=== PATIENT | female | born 1940 | race Caucasian/White ===

== ENCOUNTER 2018-12-31 13:04 | Inpatient (IN) ==
--- NOTE | 2018-12-31 13:44 | Emergency Department Note ---
Lower Extremity Injury HPI - General Chief Complaint: Extremity Injury, Lower Stated Complaint: FALL, HIP FX Time Seen by Provider: 12/31/18 13:10 Source: patient, EMS Mode of arrival: EMS Limitations: no limitations - History of Present Illness HPI Narrative: 78-year-old female presents via EMS from [facility]. Has a known right hip fracture. Her blood sugar was low this morning causing her to fall. She was seen in the hospital there and diagnosed with a hip fracture and is sent to our ER for further evaluation. Ortho has been contacted and accepts this patient. denies any other injuries. Did not hit her head. No loss consciousness. She did eat small little pieces of candy, 3 of them at 7:30 AM this morning. Nothing else to eat or drink since. tetanus current - Related Data Home Medications Medication Instructions Recorded Confirmed Enalapril Maleate 20 mg PO BID 12/31/18 12/31/18 Insulin Glargine, Human [Lantus] 19 units SQ QAM 12/31/18 12/31/18 Insulin Lispro [Humalog Kwikpen 12/31/18 U-200] Mometasone Furoate [Asmanex] 220 mcg IH DAILY 12/31/18 12/31/18 Nasonex 2 puff INTRANASAL DAILY 12/31/18 12/31/18 Potassium Chloride [Klor-Con M10] 10 meq PO BID 12/31/18 12/31/18 RX: Omeprazole 20 mg PO DAILY 12/31/18 12/31/18 amLODIPine [Norvasc] 10 mg PO DAILY 12/31/18 12/31/18 Allergies Allergy/AdvReac Type Severity Reaction Status Date / Time No Known Drug Allergies Allergy Unverified 12/31/18 13:11 Review of Systems All systems ED: reviewed and negative except as stated. Past Medical History - Past Medical History Medical history: Reports: asthma, DM, hypertension Surgical history ED: Reports: other (bladder sling) - Social History smoking status: Never smoker Alcohol use: Reports: None Drug use: Reports: none Physical Exam Limitations: no limitations General appearance: alert Head: atraumatic, normocephalic, normal inspection Eye: Present: normal appearance. Absent: conjunctival injection ENT: Present: mucous membranes moist Chest: Present: symmetric chest wall rise Respiratory: Present: normal lung sounds bilaterally. Absent: respiratory distress, rales/crackles, wheezes, accessory muscle use Cardiovascular: Present: regular rate, normal heart sounds Extremities: Present: normal capillary refill. Absent: normal inspection (right hip pain with slight shortening and rotation), full ROM (limited rom right hip), pedal edema Neurological: Present: alert, oriented X3 Psychiatric: Present: normal affect, normal mood Skin: Present: warm, dry, intact, normal color, other (1 cm skin tear rigth eblow. ROM and CMS intact ue bilat. skin tear cleansed and dressed by nursing staff.) Course Vital Signs Temperature 98.3 F 12/31/18 13:06 Pulse Rate 116 H 12/31/18 13:06 Respiratory Rate 18 12/31/18 13:06 Blood Pressure 161/72 12/31/18 13:06 Pulse Oximetry (%) 97 12/31/18 13:06 Temperature 98.3 F 12/31/18 13:06 Pulse Rate 116 H 12/31/18 13:06 Respiratory Rate 18 12/31/18 13:06 Blood Pressure 146/68 12/31/18 14:48 Pulse Oximetry (%) 100 12/31/18 14:48 Disposition Pt seen by SILO PAINTER/PA only: Yes Clinical Impression: Fall, Hip fracture, Skin tear Disposition: Xfer As Outpt/Obs ([facility]) Condition: Fair
[2018-12-31] MEDS ORDERED: ceFAZolin 2 GM in DEXTROSE 5% IN WATER 50 ML IV SCH (15:00)
[2018-12-31] MEDS ORDERED: IPRATROPIUM/ALBUTEROL 3 ML AMPUL.NEB NEB ONE (15:16)
--- NOTE | 2018-12-31 15:25 | XRay Report ---
CLINICAL INFORMATION: pre-op COMPARISON: 02/05/2007 FINDINGS: Small hiatal hernia noted. Cardiomediastinal silhouette and pulmonary vessels are otherwise normal. The lungs are clear. No effusions. IMPRESSION: Small hiatal hernia. No acute disease Interpreted and Authenticated by: Rivera Werner 12/31/18
--- NOTE | 2018-12-31 16:42 | Internal Med History&Physical ---
Medical - H&P: [facility] Patient information: Note initiated : 12/31/18 at 4:42 pm Service Date, if different from initiated Date: [] Patient: Alia Alfred 78 y/o F admitted on 12/31/18 for FALL, HIP FX. Chief Complaint: [] Chief complaint: Fall with right hip History of present illness: Ms. Alfred is a 78 year old F of poorly controlled diabetes/hypertension who presents to [facility] ER after she sustained a fall this morning landing on her right side and injuring her right hip. She was on the floor for half an hour until her neighbor checked on her. She was evaluated in the ER initial work-up was consistent with right hip fracture. Dr. Norman orthopedics was consulted and patient was transferred to [facility] for operative intervention. Patient carries a history of poorly controlled diabetes with erratic blood sugars. She had a few episodes of hypoglycemia recently and this morning was dizzy after an episode of hypoglycemia. Patient subsequently fell however did n ot lose consciousness. She denies head injury, thunderclap headache, unilateral weakness or incontinence. She denies seizure episodes. Significant pain is evaluated in the ER. She endorses to recurrent falls and episodes of dizziness. She however denies chest pain, palpitations, tearing neck pain, fever, cough, chills. She denies changes in medications. Endorses to left butt ulcer which has improved significantly over the last couple of months and has been taking care of her by her primary care physician. Review of systems 10 point review of system was performed and is negative except for one discussed above Medical - H&P: PMH Medical history: Hypertension DM type II Degenerative joint disease Seasonal allergy disorder GERD Pertinent family history: Nonrelevant Social history: Lives alone 2 years ago Functional capacity: independent ambulation Have you smoked in the last 12 months: No Drug use: none Alcohol use: none Medical - H&P: Meds Home Medications Medication Instructions Recorded Confirmed Type Enalapril Maleate 20 mg PO BID 12/31/18 12/31/18 History Hydrochlorothiazide [Oretic] 25 mg PO DAILY 12/31/18 12/31/18 History Insulin Glargine, Human [Lantus] 19 units SQ QAM 12/31/18 12/31/18 History Insulin Lispro [Humalog Kwikpen 12/31/18 History U-200] Mometasone Furoate [Asmanex] 220 mcg IH DAILY 12/31/18 12/31/18 History Nasonex 2 puff INTRANASAL DAILY 12/31/18 12/31/18 History Omeprazole 20 mg PO DAILY 12/31/18 12/31/18 History Potassium Chloride [Klor-Con M10] 10 meq PO BID 12/31/18 12/31/18 History amLODIPine [Norvasc] 10 mg PO DAILY 12/31/18 12/31/18 History Allergies Allergy/AdvReac Type Severity Reaction Status Date / Time No Known Drug Allergies Allergy Verified 12/31/18 20:17 Medical - H&P: Exam - Constitutional Vitals: Temp Pulse Resp BP Pulse Ox 98.3 F 116 H 18 146/68 100 12/31/18 13:06 12/31/18 13:06 12/31/18 13:06 12/31/18 14:48 12/31/18 14:48 General appearance: no acute distress Exam: Alert oriented Head normocephalic Neck no lymphadenopathy Oral cavity dry Ear nose discharge Eye movement symmetrical S1-S2 regular rhythm no murmur Diminished breath sounds bases Soft nontender Lower extremity postoperative dressing right thigh Skin no suspicious lesion Psych alert cooperative Neuro nonfocal Medical - H&P: Reslt - Labs CBC & Chem 7: 01/01/19 04:20 Medical - H&P: A/P (1) Closed right hip fracture Current visit: Yes Status: Acute * Right hip fracture-postop day 0. Managed by orthopedics * DVT prophylaxis managed per orthopedics-on Coumadin * Pain management as per orthopedics Hospitalist consult for management of medical issues * DM type II continue basal prandial insulin/CC diet * History of hypertension resume home medications once systolics over 140 * Left butt ulcer-patient declined wound care consult or wound management. * History of GERD continue PPI * Reactive disease continue Asmanex * Full code
[2018-12-31] MEDS ORDERED: PROPOFOL 200 MG/20 ML VIAL IV ONE (17:25)
[2018-12-31] MEDS ORDERED: MIDAZOLAM 2 MG/2 ML VIAL IV ONE (17:25)
[2018-12-31] MEDS ORDERED: METOPROLOL TARTRATE 5 MG/5 ML VIAL IV ONE (17:25)
[2018-12-31] MEDS ORDERED: DEXAMETHASONE 4 MG/ML VIAL IV ONE (17:25)
[2018-12-31] MEDS ORDERED: ONDANSETRON 4 MG/2 ML VIAL IV ONE (17:25)
[2018-12-31] MEDS ORDERED: PHENYLEPHRINE 10 MG/ML VIAL IV ONE (17:25)
[2018-12-31] MEDS ORDERED: fentaNYL 250 MCG/5 ML VIAL IV ONE (17:25)
[2018-12-31] MEDS ORDERED: METHOCARBAMOL 1,000 MG/10 ML VIAL IV PRN (18:03)
[2018-12-31] MEDS ORDERED: IPRATROPIUM/ALBUTEROL 3 ML AMPUL.NEB NEB PRN (18:03)
[2018-12-31] MEDS ORDERED: ACETAMINOPHEN 1,000 MG/100 ML BOTTLE IV ONE ×2 (18:03→18:46)
[2018-12-31] MEDS ORDERED: PROMETHAZINE 25 MG/ML VIAL IV PRN (18:03)
[2018-12-31] MEDS ORDERED: ePHEDrine 50 MG/ML AMPUL IV PRN (18:03)
[2018-12-31] MEDS ORDERED: MEPERIDINE 25 MG/ML SYRINGE IV PRN (18:03)
[2018-12-31] MEDS ORDERED: fentaNYL 100 MCG/2 ML VIAL IV PRN (18:03)
[2018-12-31] MEDS ORDERED: NALOXONE HCL 0.4 MG/ML VIAL IV PRN (18:03)
[2018-12-31] MEDS ORDERED: diphenhydrAMINE 50 MG/ML VIAL IV PRN (18:03)
[2018-12-31] MEDS ORDERED: ATROPINE SULFATE 0.4 MG/ML VIAL IV PRN (18:03)
[2018-12-31] MEDS ORDERED: FLUMAZENIL 0.1 MG/ML ML IV PRN (18:03)
[2018-12-31] MEDS ORDERED: ONDANSETRON 4 MG/2 ML VIAL IV PRN (18:03)
[2018-12-31] MEDS ORDERED: METOPROLOL TARTRATE 5 MG/5 ML VIAL IV PRN (18:03)
[2018-12-31] MEDS ORDERED: LACTATED RINGERS 1,000 ML IV SCH (18:15)
--- NOTE | 2018-12-31 18:19 | Brief Operative Note ---
Date of procedure: 12/31/18 Pre-op diagnosis: Right intertrochanteric hip fracture Post-op diagnosis: same Procedure: Open treatment internal fixation of Right intertrochanteric hip fracture with short gamma nail Grafts/Implants: Yes (Jr gamma nail) Anesthesia: GLMA Findings: intertrochanteric hip fracture Complications: none Surgeon: Diaz Norman Prosthetic Lab Technician: Alireza Wills Estimated blood loss (cc): 150 Specimens Removed/Pathology: none sent Condition: stable Disposition: PACU
[2018-12-31] MEDS ORDERED: FLEETS ADULT ENEMA PR PRN (18:20)
[2018-12-31] MEDS ORDERED: MAGNESIUM HYDROXIDE 30 ML ORAL.SUSP PO PRN (18:20)
[2018-12-31] MEDS ORDERED: BENZOCAINE/MENTHOL 1 LOZENGE PO PRN (18:20)
[2018-12-31] MEDS ORDERED: POLYETHYLENE GLYCOL 3350 17 GM PACKET PO PRN (18:20)
[2018-12-31] MEDS ORDERED: BISACODYL 10 MG SUPP.RECT PR PRN (18:20)
[2018-12-31] MEDS ORDERED: DEXTROSE 50% 50 ML VIAL IV PRN (18:26)
[2018-12-31] MEDS ORDERED: DEXTROSE 31 GM ORAL.SUSP PO PRN (18:26)
[2018-12-31] MEDS ORDERED: MEPERIDINE 50 MG/ML INJECTION ONE (18:59)
--- NOTE | 2018-12-31 19:19 | XRay Report ---
CLINICAL INFORMATION: right hip gamma nailing for basicervical fracture COMPARISON: Preoperative films of 12/31/2018 FINDINGS: Intraoperative digital films show basicervical fracture reduced to anatomic alignment and transfixed by gamma nail. Right hip shows mild degeneration IMPRESSION: ORIF basocervical fracture anatomic alignment Interpreted and Authenticated by: Rivera Werner 12/31/18
[2018-12-31] MEDS: 0.9 % SODIUM CHLORIDE 1,000 ML IV SCH (21:13)
[2018-12-31] MEDS: 0.9 % SODIUM CHLORIDE 10 ML SYRINGE IV SCH (21:16)
[2018-12-31] MEDS: INSULIN LISPRO 1 UNIT/0.01 ML UNIT SQ SCH ×2 (21:37→23:48)
[2018-12-31] MEDS: SENNOSIDES 1 TABLET PO SCH (21:38)
[2018-12-31] MEDS: DOCUSATE SODIUM 100 MG CAPSULE PO SCH (21:38)
[2018-12-31] MEDS: ENALAPRIL MALEATE 20 MG PO SCH (21:43)
[2018-12-31] MEDS: ceFAZolin 1 GM VIAL IV SCH (23:30)
--- NOTE | 2018-12-31 23:46 | Consultation ---
DATE OF CONSULTATION: 12/31/2018 DATE OF SERVICE: 12/31/2018 REQUESTING PHYSICIAN: Dr. Barba. CONSULTING PHYSICIAN: Dr. Norman REASON FOR CONSULTATION: Right hip fracture. HISTORY: This is a 78-year-old female who lives alone and sustained a fall this morning injuring her hip. She is unable to bear weight. She was found by her neighbor about a half an hour later and was taken to the Emergency Department in [place]. X-rays were taken which showed an intertrochanteric hip fracture. She was transferred down for definitive orthopedic treatment. Her pain is isolated to her hip. It is worse with movement, better with rest. She denies pain of significance in any other locations. PAST MEDICAL HISTORY: Type 2 diabetes, hypertension, gastroesophageal reflux, and asthma. MEDICATIONS: Enalapril. She also has mometasone, Nasonex, omeprazole, amlodipine, Klor-Con, and insulin. ALLERGIES: NO KNOWN DRUG ALLERGIES. SOCIAL HISTORY: She lives alone, is 2 years ago. She denies alcohol or tobacco use. FAMILY HISTORY: Noncontributory. REVIEW OF SYSTEMS: Negative except per the HPI. PHYSICAL EXAMINATION: VITAL SIGNS: On presentation were temperature 98.3, pulse 116, respirations 18, blood pressure 146/68. GENERAL: She appears her stated age in no acute distress. She is oriented to person, place. Mood and affect are appropriate. EXTREMITIES: Her bilateral upper extremity and left lower extremity showed no obvious evidence of acute injury and are normal to inspection, range of motion, stability and strength. Her right lower extremity shows minimal deformity on inspection. However, range of motion is limited secondary to pain. Stability not grossly unstable, however, difficult to assess due to her pain. Strength is 3/5 distally. Sensation to light touch is grossly intact. Pedal pulses are difficult to palpate. IMAGING: X-rays reviewed from [facility] show a minimally displaced intertrochanteric hip fracture of the right hip. IMPRESSION: Closed right intertrochanteric hip fracture in a 78-year-old female, poorly controlled diabetic, who does live alone independently. PLAN: Discussed with her I recommend proceeding with urgent open treatment and internal fixation with intramedullary william fixation of the right intertrochanteric fracture. I discussed risks of surgery with her, which include, but are not limited to, bleeding, possibly requiring transfusion; infection; possibly requiring implant removal; prolonged antibiotics; injury to nerves, blood vessels, or other surrounding structures; anesthetic risks; nonunion or malunion of fracture; failure of hardware fixation; possibility of needing further surgery. She understands and wishes to proceed. WALI:linda Job ID: [id number] Doc ID: [id number] Diaz Norman MD
[2019-01-01] MEDS: INSULIN LISPRO 1 UNIT/0.01 ML UNIT SQ SCH ×5 (02:08→20:45)
[2019-01-01 05:25] LABS: Hematocrit 30.4 % (36.0-48.0); Prothrombin Time 13.7 sec (11.9-14.5)
[2019-01-01] MEDS: 0.9 % SODIUM CHLORIDE 1,000 ML IV SCH ×2 (05:46→16:34)
[2019-01-01] MEDS: OMEPRAZOLE 20 MG CAPSULE PO SCH (07:02)
[2019-01-01] MEDS: oxyCODONE/APAP 5/325MG TABLET PO PRN ×3 (07:19→20:59)
--- NOTE | 2019-01-01 07:43 | Operative Note ---
DATE OF OPERATION: 12/31/2018 PREOPERATIVE DIAGNOSIS: Right closed intertrochanteric hip fracture. POSTOPERATIVE DIAGNOSIS: Right closed intertrochanteric hip fracture. PROCEDURE PERFORMED: Open treatment and internal fixation right intertrochanteric hip fracture using intramedullary fixation with a [place] gamma nail short. SURGEON: Diaz Norman MD GLASS GLAZIER: Aureliano Wills PA-C. This provider's expertise and technical skill were required throughout the case. The PA assisted with preoperative coordination, intraoperative retraction, wound closure, dressing and splint application, as well as postoperative documentation and care coordination. ANESTHESIA: General. DRAINS: None. SPECIMENS: None. COMPLICATIONS: None. BLOOD LOSS: 150 mL POSTOPERATIVE CONDITION: Stable. INDICATIONS FOR SURGERY: This is a 78-year-old female who fell earlier today with right hip pain and inability to bear weight. She was taken to the emergency department in [place] and x-rays taken showed an intertrochanteric hip fracture. She was then transferred down for definitive orthopedic treatment. FINDINGS AT SURGERY: Intertrochanteric hip fracture. Post-fixation showed near anatomic alignment with hardware in good position. PROCEDURE IN DETAIL: The patient had been seen preoperatively. Informed consent had been obtained after discussion of risks, benefits of surgery. Risks including, but not limited to, bleeding, possibly requiring transfusion; infection, possibly requiring implant removal and prolonged antibiotics; injury to nerves, blood vessels other surrounding structures; anesthetic risks; nonunion or malunion of the fracture; failure of hardware fixation; possibility of needing further surgery. She understood these risks and wished to proceed. Correct operative site was marked and the patient was taken to the operating room. General anesthesia induced. She was carefully positioned on the fracture table and the left leg was flexed and abducted out of the way and carefully padded. The right lower extremity was placed in some gentle traction with internal rotation. Fluoro was brought in to verify anatomic reduction and the hip and leg were carefully prepped and draped in normal sterile fashion. Timeout was performed verifying patient name, operative site, and plan. [place]an shower curtain was used to cover all skin surfaces and an incision was made proximal to greater trochanter with a scalpel through skin and subcutaneous tissue. Hemostasis was obtained with Bovie cautery. We continued with Bovie down in layers until we were through the iliotibial band. Blunt finger dissection was used to dissect down to the tip of the trochanter and then a guide pin was placed. We adjusted position with the honeycomb and a second guide pin to get optimal starting position and a tissue protector was used while the opening reamer was used to gain entry into the proximal femur. We then placed a ball tip guidewire down the femoral shaft and a short 125 gamma nail was opened. This was advanced over the guide william and was noted to be a fairly tight down her canal. We were able to impact the nail far enough to get good position for the lag screw and made a stab incision laterally and the sleeves were advanced down to bone. We used the opening drill and then a threaded guide pin was passed up into the femoral head, placed at central on the lateral view and just inferior to the mid portion on the AP view. Once we liked our pin position we measured 85 length and used the step reamer to ream 85 and an 85 lag screw was opened. This was advanced until it was less than a cm from the articular surface on both views. We then placed the proximal interlocking screw and tightened this down until fully tight and then we backed it off a quarter turn to allow sliding compression. We then went distally and used the jig to place our distal interlocks. This was done of the stab incision. The sleeves were taken down to bone and then a drill was used to drill bicortically. The screw measured 32.5 so we went ahead and opened a 32.5 screw and advanced this till it was tight. Final fluoro images were taken, verifying good position. We irrigated. Of note, we did irrigate with IrriSept at the beginning. Once we had opened up the proximal incision. We then repeated a complete irrigation with IrriSept at the end, after a minute irrigated with saline. The IT band was closed with #1 Vicryl and then 2-0 Monocryl was used for subcutaneous and you for skin. Xeroform sterile dressing applied. The patient was then awakened, extubated, and transferred to recovery in satisfactory condition. WALI:samir Job ID: [id number] Doc ID: [id number] Diaz Norman MD
--- NOTE | 2019-01-01 08:54 | Orthopedic Progress Note ---
Orthopedics - Auxillary Note - Subjective Patient Information: Note initiated : 01/01/19 at 8:52 am Service Date, if different from initiated Date: [] Patient: Alia Alfred 78 y/o F admitted on 12/31/18 for Fall, Hip Fx. Chief Complaint: No c/o bandages c/d/i nvi-distal Vital Signs Temp Pulse Pulse Resp BP BP Pulse Ox 01/01/19 04:06 98.1 F 105 H 18 136/60 93 12/31/18 23:46 97.8 F 108 H 20 127/54 97 12/31/18 23:23 95 H 116/55 96 12/31/18 22:23 107 H 128/57 91 12/31/18 21:23 108 H 145/60 93 12/31/18 20:53 105 H 139/60 91 12/31/18 20:23 103 H 139/58 94 12/31/18 20:11 98.9 F 116 H 14 161/72 96 12/31/18 20:08 103 H 143/59 93 12/31/18 19:38 99 H 126/63 94 12/31/18 19:25 97.4 F 97 H 24 H 131/67 94 12/31/18 19:23 97 H 131/67 92 12/31/18 19:15 98.9 F 97 H 14 132/50 96 12/31/18 19:00 98.8 F 100 H 12 131/59 96 12/31/18 18:55 99 H 21 125/60 99 12/31/18 18:50 96 H 11 L 108/58 100 12/31/18 18:45 95 H 16 121/58 100 12/31/18 18:40 92 H 18 129/53 100 12/31/18 18:38 98.8 F 91 H 16 126/95 100 12/31/18 14:48 146/68 100 12/31/18 13:59 97 12/31/18 13:06 98.3 F 116 H 18 161/72 97 Intake and Output 12/31/18 01/01/19 01/01/19 21:59 05:59 13:59 Intake Total 2000 120 240 Output Total 600 950 Balance 1400 -830 240 Intake: IV 100 Oral 120 240 IV - Manual Only 1900 Output: Urine Catheter Amount 500 950 Estimated Blood Loss 100 Other: Meal Breakfast Percent of Meal Consumed 100% Feeding Ability Independent Urine Appearance Clear Urine Color Pale Pale Urine Odor Normal Weight 147 lb 9.6 oz Laboratory Results - last 24 hr 01/01/19 01/01/19 04:20 04:20 Hgb 10.0 L Hct 30.4 L PT 13.7 INR 1.0 s/p R hip IM nailing for Intertroch fx-stable cont with PT tentative d/c 1-2 days Home versus SNF
[2019-01-01] MEDS: POTASSIUM CHLORIDE 10 MEQ TABLET PO SCH ×2 (09:05→16:58)
[2019-01-01] MEDS: ceFAZolin 1 GM VIAL IV SCH (09:05)
[2019-01-01] MEDS: DOCUSATE SODIUM 100 MG CAPSULE PO SCH ×2 (09:05→20:44)
[2019-01-01] MEDS: amLODIPine 10 MG TABLET PO SCH (09:05)
[2019-01-01] MEDS: INSULIN GLARGINE, HUMAN 1 UNIT/0.01 ML SQ SCH (09:06)
[2019-01-01] MEDS: 0.9 % SODIUM CHLORIDE 10 ML SYRINGE IV SCH ×2 (10:57→20:49)
--- NOTE | 2019-01-01 11:13 | Internal Med Progress Note ---
Medical - PN: Subj Patient information: Note initiated : 01/01/19 at 11:08 am Service Date, if different from initiated Date: [] Patient: Alia Alfred 78 y/o F admitted on 12/31/18 for Fall, Hip Fx. Chief Complaint: [] Interval history: Ms. Alfred is a 78 year old F of poorly controlled diabetes/hypertension who presents to [facility] ER after she sustained a fall this morning landing on her right side and injuring her right hip. She was on the floor for half an hour until her neighbor checked on her. She was evaluated in the ER initial work-up was consistent with right hip fracture. Dr. Norman orthopedics was consulted and patient was transferred to [facility] for operative intervention. Patient carries a history of poorly controlled diabetes with erratic blood sugars. She had a few episodes of hypoglycemia recently and this morning was dizzy after an episode of hypoglycemia. Patient subsequently fell however did not lose consciousness. She denies head injury, thunderclap headache, unilateral weakness or incontinence. She denies seizure episodes. Significant pain is evaluated in the ER. She endorses to recurrent falls and episodes of dizziness. She however denies chest pain, palpitations, tearing neck pain, fever, cough, chills. She denies changes in medications. Endorses to left butt ulcer which has improved significantly over the last couple of months and has been taking care of her by her primary care physician. /-postop day 1. Doing better. Blood sugars erratic but mid 150s. Currently on basal prandial insulin. No overnight fever chills. Pain in good control bear weight. DC Stanley's catheter today. Patient still does not want her left butt wound and dressed as she feels it has been satisfactory taking care of by her primary care physician. Currently on Coumadin for DVT prophylaxis as per orthopedics. Suspect discharge in 24 to 48 hours pending clearance by orthopedics and physical therapy. Patient might require SNF transfer in light of deconditioning/fall with no help available at home. - Constitutional Vitals: Vital Signs Temp Pulse Resp BP Pulse Ox 97.6 F 105 H 18 140/65 95 01/01/19 08:00 01/01/19 08:00 01/01/19 08:00 01/01/19 08:00 01/01/19 08:00 Period Temp Pulse Resp BP Sys/Saba Pulse Ox Last 24 Hr 97.4 F-98.9 F 91-116 11-24 108-161/50-95 91-100 Intake and Output 12/31/18 01/01/19 01/01/19 21:59 05:59 13:59 Intake Total 1999 120 1240 Output Total 600 950 Balance 1400 -830 1240 Weight 147 lb 9.6 oz Intake & Output: Intake & Output 12/31/18 01/01/19 01/01/19 21:59 05:59 13:59 Intake Total 1999 120 1240 Output Total 600 950 Balance 1400 -830 1240 Weight 147 lb 9.6 oz Intake: IV 100 1000 Sodium Chloride 0.9% 1,000 ml @ 1000 100 mls/hr IV .Q10H [facility] Rx#: [id number] Oral 120 240 IV - Manual Only 1900 Output: Urine Catheter Amount 500 950 Estimated Blood Loss 100 Other: Meal Breakfast Percent of Meal Consumed 100% Feeding Ability Independent Urine Appearance Clear Uretheral (Stanley) Clear Urine Color Pale Pale Uretheral (Stanley) Bright Yellow Urine Odor Normal General appearance: no acute distress Exam: Patient doing well Alert oriented Nonlabored breathing No significant right hip pain swelling or tenderness Stanley is draining clear urine No anxiety Medical - PN: Obj Da - Labs CBC & Chem 7: 01/01/19 04:20 Labs: Abnormal Lab Results 01/01/19 04:20 Hgb 10.0 L Hct 30.4 L Meds: Medications Amlodipine Besylate (Norvasc) 10 mg PO DAILY [facility] Last Admin: 01/01/19 09:05 Dose: 10 mg Documented by: Bisacodyl (Dulcolax) 10 mg [place] Q2-3DAYS PRN PRN Reason: Constipation Dextrose (Dextrose 50%) 0 ml IV UD PRN PRN Reason: Hypoglycemia Diagnostic Test (Pha) (Accu-Chek) 1 each FS ACHS [facility] Last Admin: 01/01/19 07:02 Dose: 1 each Documented by: Docusate Sodium (Colace) 100 mg PO BID [facility] Last Admin: 01/01/19 09:05 Dose: 100 mg Documented by: Glucose (Insta-Glucose) 15 gm PO PRN PRN PRN Reason: Hypoglycemia Sodium Chloride (Sodium Chloride 0.9%) 1,000 mls @ 100 mls/hr IV .Q10H [facility] Last Infusion: 01/01/19 09:25 Dose: Infused Documented by: Insulin Glargine (Lantus) 19 unit SQ QAM [facility] Last Admin: 01/01/19 09:06 Dose: 19 units Documented by: Insulin Human Lispro (Humalog) 0 unit SQ ACHS [facility]; Protocol Last Admin: 01/01/19 07:19 Dose: Not Given Documented by: Lisinopril (Zestril) 20 mg PO BID [facility] Magnesium Hydroxide (Milk Of Magnesia) 30 ml PO BIDP PRN PRN Reason: Constipation Morphine Sulfate (Morphine) 0 mg IV Q1HP PRN PRN Reason: PAIN LEVEL > 6 Omeprazole (Prilosec) 20 mg PO DAILY [facility] Last Admin: 01/01/19 07:02 Dose: 20 mg Documented by: Oxycodone/Acetaminophen (Percocet 5-325 Mg) 0 tab PO Q4HP PRN PRN Reason: PAIN LEVEL 3-6 Last Admin: 01/01/19 07:19 Dose: 1 tab Documented by: (Mometasone Furoate [Asmanex] 220 Mcg Inh 1 dose INH DAILY [facility] Nasonex 2 Puff Nasal (Inh) 2 dose DAVID DAILY [facility] Polyethylene Glycol (Miralax) 17 gm PO DAILYP PRN PRN Reason: Constipation Potassium Chloride (Kdur) 10 meq PO BIDCC [facility] Last Admin: 01/01/19 09:05 Dose: 10 meq Documented by: Senna (Senokot) 2 tab PO HS [facility] Last Admin: 12/31/18 21:38 Dose: 2 tab Documented by: Sodium Biphosphate/Sodium Phosphate (Fleets Adult) 1 dose [place] Q3-4DAYS PRN PRN Reason: Constipation Sodium Chloride (Saline Flush) 10 ml IV Q12 [facility] Last Admin: 01/01/19 10:57 Dose: Not Given Documented by: Throat Lozenges (Cepacol) 1 lozenge PO PRN PRN PRN Reason: Sore Throat Warfarin Sodium (Coumadin Per Pharmacy) 1 order PO DAILY@1400 [facility] Last Admin: 01/01/19 10:23 Dose: Not Given Documented by: Warfarin Sodium (Coumadin) 4 mg PO ONCE@1400 [facility] Stop: 01/01/19 14:01 Medical - PN: A/P - Time Spent With Patient Total time spent is greater than 50% in coordination of care (as documented) at patient's floor/unit and/or counseling patient: 25 - 35 minutes (1) Closed right hip fracture Status: Acute Assessment and plan: * Right hip fracture-postop day 1. Managed by orthopedics. Doing well. * DVT prophylaxis managed per orthopedics-on Coumadin * Pain management well controlled * Hospitalist consult for management of medical issues * DM type II continue basal prandial insulin/CC diet. Blood sugars at goal around 140 * History of hypertension continue home medications * Left butt ulcer-patient declined wound care consult or wound management. * History of GERD continue PPI * Reactive disease continue Asmanex * Full code Current Visit: Yes Medical - PN: Qual - Stroke Symptom Onset Unknown: No - VTE Deep Vein Thrombosis/Pulmonary Embolism Present on Admission: No
[2019-01-01] MEDS: LISINOPRIL 20 MG TABLET PO SCH ×2 (11:29→20:44)
[2019-01-01] MEDS: MOMETASONE FUROATE 220 MCG INH SCH ×2 (12:01→20:44)
[2019-01-01] MEDS: ENALAPRIL MALEATE 20 MG PO SCH (12:01)
[2019-01-01] MEDS: NASONEX NAS SCH (12:02)
[2019-01-01 12:31] LABS: ALT/SGPT 9 U/l (0-40); AST/SGOT 13 U/l (0-37); Albumin 3.4 gm/dL (3.2-5.2); Albumin/Globulin Ratio 1.3 (1.0-2.3); Alkaline Phosphatase 113 U/L (39-117); Bilirubin,Direct < 0.2 mg/dL (0.0-0.3); Bilirubin,Total 0.4 mg/dL (0.0-1.0); Blood Urea Nitrogen 14 mg/dl (8-23); Calcium 8.6 mg/dl (8.6-10.4); Carbon Dioxide 20 mmol/L (22-30); Chloride 94 mmol/L (96-108); Globulin 2.7 gm/dL (2.2-3.7); Glomerular Filtration Rate 62; Glucose 384 mg/dL (70-105); Lactate Dehydrogenase 169 U/L (94-250); Phosphorous 3.6 mg/dL (2.7-4.5); Triglycerides 61 mg/dl (<150); Uric Acid 5.1 mg/dL (2.5-8.0)
[2019-01-01] MEDS ORDERED: WARFARIN 4 MG TABLET PO ONE (14:00)
[2019-01-01] MEDS: SENNOSIDES 1 TABLET PO SCH (20:44)
[2019-01-02] MEDS: 0.9 % SODIUM CHLORIDE 1,000 ML IV SCH (00:46)
[2019-01-02 05:32] LABS: Hematocrit 29.3 % (36.0-48.0); Hemoglobin 9.5 g/dL (12.0-15.0)
[2019-01-02 06:00] LABS: INR 1.2 (0.9-1.1); Prothrombin Time 15.6 sec (11.9-14.5)
[2019-01-02] MEDS: 0.9 % SODIUM CHLORIDE 10 ML SYRINGE IV SCH ×3 (06:01→21:17)
[2019-01-02] MEDS: oxyCODONE/APAP 5/325MG TABLET PO PRN (06:01)
[2019-01-02 06:33] LABS: ALT/SGPT 7 U/l (0-40); AST/SGOT 10 U/l (0-37); Albumin/Globulin Ratio 1.2 (1.0-2.3); Alkaline Phosphatase 96 U/L (39-117); Bilirubin,Direct < 0.2 mg/dL (0.0-0.3); Bilirubin,Total 0.3 mg/dL (0.0-1.0); Blood Urea Nitrogen 13 mg/dl (8-23); Calcium 8.6 mg/dl (8.6-10.4); Carbon Dioxide 23 mmol/L (22-30); Chloride 97 mmol/L (96-108); Globulin 2.5 gm/dL (2.2-3.7); Glomerular Filtration Rate 84; Glucose 211 mg/dL (70-105); Lactate Dehydrogenase 140 U/L (94-250); Phosphorous 2.9 mg/dL (2.7-4.5); Triglycerides 146 mg/dl (<150); Uric Acid 5.3 mg/dL (2.5-8.0)
[2019-01-02] MEDS: INSULIN LISPRO 1 UNIT/0.01 ML UNIT SQ SCH ×4 (07:31→21:15)
--- NOTE | 2019-01-02 07:38 | Orthopedic Progress Note ---
Orthopedics - Auxillary Note - Subjective Patient Information: Note initiated : 01/02/19 at 7:36 am Service Date, if different from initiated Date: [] Patient: Alia Alfred 78 y/o F admitted on 12/31/18 for Fall, Hip Fx. Chief Complaint: no c/o, other than mild pain. bandages c/d/i niv-distal Vital Signs Temp Pulse Resp BP Pulse Ox 01/02/19 04:00 98.1 F 104 H 16 134/62 94 01/02/19 00:00 98.6 F 100 H 18 121/65 94 01/01/19 19:45 98.8 F 104 H 18 127/64 95 01/01/19 16:00 98.8 F 110 H 18 137/56 95 01/01/19 12:00 98.0 F 98 H 18 136/70 96 01/01/19 08:00 97.6 F 105 H 18 140/65 95 Intake and Output 01/01/19 01/02/19 01/02/19 21:59 05:59 13:59 Intake Total 920 500 Output Total 400 425 Balance 520 75 Intake: Oral 920 500 Output: Void Amount 400 425 Other: Meal Dinner Percent of Meal Consumed 75% Feeding Ability Independent Weight 150 lb Laboratory Results - last 24 hr 01/01/19 01/02/19 01/02/19 11:22 04:10 04:10 Hgb 9.5 L Hct 29.3 L PT 15.6 H INR 1.2 H Sodium 131 L Potassium 4.5 Chloride 94 L Carbon Dioxide 20 L Anion Gap 17.0 H BUN 14 Creatinine 0.9 GFR Calculation 62 Glucose 384 H Uric Acid 5.1 Calcium 8.6 Phosphorus 3.6 Magnesium 1.5 L Total Bilirubin 0.4 Direct Bilirubin < 0.2 GGT 12 AST 13 ALT 9 Alkaline Phosphatase 113 Lactate Dehydrogenase 169 Total Protein 6.1 Albumin 3.4 Globulin 2.7 Albumin/Globulin Ratio 1.3 Triglycerides 61 01/02/19 04:10 Hgb Hct PT INR Sodium 133 Potassium 4.4 Chloride 97 Carbon Dioxide 23 Anion Gap 13.0 BUN 13 Creatinine 0.7 GFR Calculation 84 Glucose 211 H Uric Acid 5.3 Calcium 8.6 Phosphorus 2.9 Magnesium 1.5 L Total Bilirubin 0.3 Direct Bilirubin < 0.2 GGT 10 AST 10 ALT 7 Alkaline Phosphatase 96 Lactate Dehydrogenase 140 Total Protein 5.5 L Albumin 3.0 L Globulin 2.5 Albumin/Globulin Ratio 1.2 Triglycerides 146 s/p R hip IM nailing for Intertroch fx-stable mobilize with PT tentative d/c to SNF cont coumadin f/u in 2 weeks at [facility]. daily dry dressing changes. toe touch weight bearing.
[2019-01-02] MEDS: OMEPRAZOLE 20 MG CAPSULE PO SCH (08:25)
[2019-01-02] MEDS: DOCUSATE SODIUM 100 MG CAPSULE PO SCH ×2 (08:25→21:12)
[2019-01-02] MEDS: LISINOPRIL 20 MG TABLET PO SCH ×2 (08:25→21:12)
[2019-01-02] MEDS: INSULIN GLARGINE, HUMAN 1 UNIT/0.01 ML SQ SCH (08:25)
[2019-01-02] MEDS: POTASSIUM CHLORIDE 10 MEQ TABLET PO SCH ×2 (08:25→16:35)
[2019-01-02] MEDS: amLODIPine 10 MG TABLET PO SCH (08:25)
[2019-01-02] MEDS: MOMETASONE FUROATE 220 MCG INH SCH (08:26)
[2019-01-02] MEDS: NASONEX NAS SCH (08:27)
--- NOTE | 2019-01-02 11:42 | Internal Med Progress Note ---
Medical - PN: Subj Patient information: Note initiated : 01/02/19 at 11:40 am Service Date, if different from initiated Date: [] Patient: Alia Alfred a 78 y/o F admitted on 12/31/18 for Fall, Hip Fx. Chief Complaint: [] Interval history: Ms. Alfred is a 78 year old F of poorly controlled diabetes/hypertension who presents to [facility] ER after she sustained a fall this morning landing on her right side and injuring her right hip. She was on the floor for half an hour until her neighbor checked on her. She was evaluated in the ER initial work-up was consistent with right hip fracture. Dr. Norman orthopedics was consulted and patient was transferred to [facility] for operative intervention. Patient carries a history of poorly controlled diabetes with erratic blood sugars. She had a few episodes of hypoglycemia recently and this morning was dizzy after an episode of hypoglycemia. Patient subsequently fell however did not lose consciousness. She denies head injury, thunderclap headache, unilateral weakness or incontinence. She denies seizure episodes. Significant pain is evaluated in the ER. She endorses to recurrent falls and episodes of dizziness. She however denies chest pain, palpitations, tearing neck pain, fever, cough, chills. She denies changes in medications. Endorses to left butt ulcer which has improved significantly over the last couple of months and has been taking care of her by her primary care physician. 01/01-postop day 1. Doing better. Blood sugars erratic but mid 150s. Currently on basal prandial insulin. No overnight fever chills. Pain in good control bear weight. DC Stanley's catheter today. Patient still does not want her left butt wound and dressed as she feels it has been satisfactory taking care of by her primary care physician. Currently on Coumadin for DVT prophylaxis as per orthopedics. Suspect discharge in 24 to 48 hours pending clearance by orthopedics and physical therapy. Patient might require SNF transfer in light of deconditioning/fall with no help available at home. 01/02-postop day 2. Patient doing well. Blood sugar reasonably controlled. Postop pain control. Stanley's catheter discontinued. Tolerating diet and ph ysical therapy. Anticipate discharge in 24 hours as per orthopedics. Stable labs and hemodynamics. No further recommendations from hospitalist service. - Constitutional Vitals: Vital Signs Temp Pulse Resp BP Pulse Ox 99.1 F H 104 H 16 130/62 94 01/02/19 08:00 01/02/19 04:00 01/02/19 08:00 01/02/19 08:00 01/02/19 08:00 Period Temp Pulse Resp BP Sys/Saba Pulse Ox Last 24 Hr 98.0 F-99.1 F 98-110 16-18 121-137/56-70 94-96 Intake and Output 01/01/19 01/02/19 01/02/19 21:59 05:59 13:59 Intake Total 920 500 Output Total 400 425 250 Balance 520 75 -250 Weight 150 lb Intake & Output: Intake & Output 01/01/19 01/02/19 01/02/19 21:59 05:59 13:59 Intake Total 920 500 Output Total 400 425 250 Balance 520 75 -250 Weight 150 lb Intake: Oral 920 500 Output: Void Amount 400 425 250 Other: Meal Dinner Percent of Meal Consumed 75% Feeding Ability Independent Urine Appearance Clear Urine Color Dark Yellow Urine Odor Normal General appearance: no acute distress Exam: Alert oriented Nonlabored breathing No anxiety No lymphedema Medical - PN: Obj Da - Labs CBC & Chem 7: 01/02/19 04:10 01/02/19 04:10 Labs: Abnormal Lab Results 01/02/19 01/02/19 01/02/19 04:10 04:10 04:10 Hgb 9.5 L Hct 29.3 L PT 15.6 H INR 1.2 H Sodium Chloride Carbon Dioxide Anion Gap Glucose 211 H Magnesium 1.5 L Total Protein 5.5 L Albumin 3.0 L 01/01/19 01/01/19 11:22 04:20 Hgb 10.0 L Hct 30.4 L PT INR Sodium 131 L Chloride 94 L Carbon Dioxide 20 L Anion Gap 17.0 H Glucose 384 H Magnesium 1.5 L Total Protein Albumin Meds: Medications Amlodipine Besylate (Norvasc) 10 mg PO DAILY [facility] Last Admin: 01/02/19 08:25 Dose: 10 mg Documented by: Bisacodyl (Dulcolax) 10 mg [place] Q2-3DAYS PRN PRN Reason: Constipation Dextrose (Dextrose 50%) 0 ml IV UD PRN PRN Reason: Hypoglycemia Diagnostic Test (Pha) (Accu-Chek) 1 each FS ACHS [facility] Last Admin: 01/02/19 11:00 Dose: 1 each Documented by: Docusate Sodium (Colace) 100 mg PO BID [facility] Last Admin: 01/02/19 08:25 Dose: 100 mg Documented by: Glucose (Insta-Glucose) 15 gm PO PRN PRN PRN Reason: Hypoglycemia [facility]ulin [facility]) [facility] Admin: 01/02/19 08:25 Dose: 19 units Documented by: Insulin Human Lispro (Humalog) 0 unit SQ [facility]; Protocol Last Admin: 01/02/19 11:07 Dose: 2 units Documented by: Lisinopril (Zestril) 20 mg PO BID [facility] Last Admin: 01/02/19 08:25 Dose: 20 mg Documented by: Magnesium Hydroxide (Milk Of Magnesia) 30 ml PO BIDP PRN PRN Reason: Constipation Last Admin: 01/02/19 08:25 Dose: 30 ml Documented by: Morphine Sulfate (Morphine) 0 mg IV Q1HP PRN PRN Reason: PAIN LEVEL > 6 Omeprazole (Prilosec) 20 mg PO DAILY [facility] Last Admin: 01/02/19 08:25 Dose: 20 mg Documented by: Oxycodone/Acetaminophen (Percocet 5-325 Mg) 0 tab PO Q4HP PRN PRN Reason: PAIN LEVEL 3-6 Last Admin: 01/02/19 06:01 Dose: 1 tab Documented by: Mometasone Furoate [ Asmanex] 220 Mcg Inhaler 1 dose INH DAILY [facility] Last Admin: 01/02/19 08:26 Dose: 1 dose Documented by: Nasonex 2 Puff Nasal (Inh) 2 dose DAVID DAILY [facility] Last Admin: 01/02/19 08:27 Dose: Not Given Documented by: Polyethylene Glycol (Miralax) 17 gm PO DAILYP PRN PRN Reason: Constipation Potassium Chloride (Kdur) 10 meq PO BIDCC [facility] Last Admin: 01/02/19 08:25 Dose: 10 meq Documented by: Senna (Senokot) 2 tab PO HS [facility] Last Admin: 01/01/19 20:44 Dose: 2 tab Documented by: Sodium Biphosphate/Sodium Phosphate (Fleets Adult) 1 dose [place] Q3-4DAYS PRN PRN Reason: Constipation Sodium Chloride (Saline Flush) 10 ml IV Q12 [facility] Last Admin: 01/02/19 08:26 Dose: 10 ml Documented by: Throat Lozenges (Cepacol) 1 lozenge PO PRN PRN PRN Reason: Sore Throat Warfarin Sodium (Coumadin Per Pharmacy) 1 order PO DAILY@1400 [facility] Last Admin: 01/01/19 13:55 Dose: Not Given Documented by: Medical - PN: A/P - Time Spent With Patient Total time spent is greater than 50% in coordination of care (as documented) at patient's floor/unit and/or counseling patient: 15 - 24 minutes (1) Closed right hip fracture Status: Acute Assessment and plan: * Right hip fracture-postop day 2. Managed by orthopedics. Doing well. Will likely discharge in 24 hours per orthopedics * DVT prophylaxis managed per orthopedics-on Coumadin INR 1.2 * Pain management well controlled Hospitalist consult for management of medical issues * DM type II continue basal prandial insulin/CC diet. Blood sugars at goal * History of hypertension stable on home medications * Left butt ulcer-patient declined wound care consult or wound management. * History of GERD continue PPI * Reactive disease continue Asmanex * Full code Current Visit: Yes Medical - PN: Qual - Stroke Symptom Onset Unknown: No - VTE Deep Vein Thrombosis/Pulmonary Embolism Present on Admission: No
[2019-01-02] MEDS ORDERED: WARFARIN 4 MG TABLET PO ONE (14:00)
--- NOTE | 2019-01-02 15:18 | Discharge Summary ---
Medical - DS: Prov Patient information: Note initiated : 01/02/19 at 3:16 pm Service Date, if different from initiated Date: [] Patient: Alia Alfred 78 y/o F admitted on 12/31/18 for Fall, Hip Fx. Chief Complaint: [] Date of admission: 12/31/18 14:52 Discharge date: 01/03/19 Primary care physician: Felipe Hartman Consults: 12/31/18 20:36 Consult to Physician [CONS] Routine Comment: Consulting Provider: Urbano Barba Reason For Exam: Physician to Consult Medical - DS: Meds - Discharge Medications Prescriptions: traMADol [Ultram] 50 - 100 mg PO Q4-6HP PRN #90 tab PRN Reason: Pain Warfarin [Coumadin] 4 mg PO DAILY #30 tab Active and Home Medications: Home Medications Enalapril Maleate 20 mg PO BID 12/31/18 [History Confirmed 12/31/18 Last Taken 12/30/18 21:00] Hydrochlorothiazide [Oretic] 25 mg PO DAILY 12/31/18 [History Confirmed 12/31/18 Last Taken 12/30/18 14:00] Insulin Glargine, Human [Lantus] 19 units SQ QAM 12/31/18 [History Confirmed 12/31/18 Last Taken 12/30/18 21:00] Mometasone Furoate [Asmanex] 220 mcg IH DAILY 12/31/18 [History Confirmed 12/31/18 Last Taken 12/30/18 21:00] Nasonex 2 puff INTRANASAL DAILY 12/31/18 [History Confirmed 12/31/18 Last Taken 12/30/18 08:00] Omeprazole 20 mg PO DAILY 12/31/18 [History Confirmed 12/31/18 Last Taken 12/30/18 07:00] Potassium Chloride [Klor-Con M10] 10 meq PO BID 12/31/18 [History Confirmed 12/31/18 Last Taken 12/30/18 14:00] amLODIPine [Norvasc] 10 mg PO DAILY 12/31/18 [History Confirmed 12/31/18 Last Taken 12/30/18 14:00] Warfarin [Coumadin] 4 mg PO DAILY #30 tab 01/02/19 [Rx Last Taken Unknown] traMADol [Ultram] 50 - 100 mg PO Q4-6HP PRN #90 tab 01/02/19 [Rx Last Taken Unknown] Medical - DS: Hosp Hospital Course: Ms. Alfred is a 78 year old F of poorly controlled diabetes/hypertension who presents to [facility] ER after she sustained a fall this morning landing on her right side and injuring her right hip. She was on the floor for half an hour until her neighbor checked on her. She was evaluated in the ER initial work-up was consistent with right hip fracture. Dr. Norman orthopedics was consulted and patient was transferred to [facility] for operative intervention. Patient carries a history of poorly controlled diabetes with erratic blood sugars. She had a few episodes of hypoglycemia recently and this morning was dizzy after an episode of hypoglycemia. Patient subsequently fell however did not lose consciousness. She denies head injury, thunderclap headache, unilateral weakness or incontinence. She denies seizure episodes. Significant pain is evaluated in the ER. She endorses to recurrent falls and episodes of dizziness. She however denies chest pain, palpitations, tearing neck pain, fever, cough, chills. She denies changes in medications. Endorses to left butt ulcer which has improved significantly over the last couple of months and has been taking care of her by her primary care physician. 01/01-postop day 1. Doing better. Blood sugars erratic but mid 150s. Currently on basal prandial insulin. No overnight fever chills. Pain in good control bear weight. DC Stanley's catheter today. Patient still does not want her left butt wound and dressed as she feels it has been satisfactory taking care of by her primary care physician. Currently on Coumadin for DVT prophylaxis as per orthopedics. Suspect discharge in 24 to 48 hours pending clearance by orthopedics and physical therapy. Patient might require SNF transfer in light of deconditioning/fall with no help available at home. 01/02-postop day 2. Patient doing well. Blood sugar reasonably controlled. Postop pain control. Stanley's catheter discontinued. Tolerating diet and physical therapy. Anticipate discharge in 24 hours as per orthopedics. Stable labs and hemodynamics. No further recommendations from hospitalist service. 01/03 Overnight events. Patient stable for discharge Discharge diagnosis: Right hip fracture Secondary discharge diagnosis: Diabetes hypertension GERD reactive airway disease - Time Spent with Patient Total time spent providing and/or coordinating discharge services: Greater than 30 minutes Medical - DS: Exam - Constitutional Vitals: Vital Signs Temp Pulse Resp BP Pulse Ox 01/02/19 12:00 99 F 20 129/76 93 01/02/19 08:00 99.1 F H 16 130/62 94 01/02/19 04:00 98.1 F 104 H 16 134/62 94 01/02/19 00:00 98.6 F 100 H 18 121/65 94 01/01/19 19:45 98.8 F 104 H 18 127/64 95 01/01/19 16:00 98.8 F 110 H 18 137/56 95 Intake and Output 01/02/19 01/02/19 01/02/19 05:59 13:59 21:59 Intake Total 500 800 30 Output Total 425 250 Balance 75 550 30 Intake: Oral 500 800 30 Output: Void Amount 425 250 Other: Meal Lunch Percent of Meal Consumed 75% Feeding Ability Independent Urine Appearance Clear Urine Color Dark Yellow Urine Odor Normal Medical - DS: Data Labs on day of discharge: Labs from last 24 hours 01/02/19 01/02/19 01/02/19 04:10 04:10 04:10 Hgb 9.5 L Hct 29.3 L PT 15.6 H INR 1.2 H Sodium 133 Potassium 4.4 Chloride 97 Carbon Dioxide 23 Anion Gap 13.0 BUN 13 Creatinine 0.7 GFR Calculation 84 Glucose 211 H Uric Acid 5.3 Calcium 8.6 Phosphorus 2.9 Magnesium 1.5 L Total Bilirubin 0.3 Direct Bilirubin < 0.2 GGT 10 AST 10 ALT 7 Alkaline Phosphatase 96 Lactate Dehydrogenase 140 Total Protein 5.5 L Albumin 3.0 L Globulin 2.5 Albumin/Globulin Ratio 1.2 Triglycerides 146 Medical - DS: A/P - Patient/Caregiver Discharge Instructions Activity: as per physical therapy Diet: Consistent Carbohydrate Additional Instructions: Discharge Instructions: Continue consistent carbohydrate diet as tolerated. Follow up with [facility] on 01/15/19 at 9:00 am. [phone] Weight bearing as tolerated. You have the Aquacel Ag dressing, leave in place for 7 days then remove. If dressing becomes soiled (turns black), remove and use gauze 4x4 dressing and silvasorb ointment and change daily. You may shower with dressing on, pat dry after shower. You may start showering on post op day #2. To avoid constipation while taking any narcotic pain medication, take an over the counter stool softener/laxative. Use ice packs as directed, on for 20 minutes at a time throughout the day. This and elevation will help with pain and swelling. Call doctor or return to ER for chills, fever, uncontrolled pain, unable to go to the bathroom, nausea and/or vomiting, signs of infection, chest pain, shortness of breath, or other acute symptom. Prescriptions: traMADol [Ultram] 50 - 100 mg PO Q4-6HP PRN #90 tab PRN Reason: Pain Warfarin [Coumadin] 4 mg PO DAILY #30 tab Other Amb Orders: OT Discharge Order Location: None Selected Physical Therapy at Discharge - General Location: None Selected Physical Therapy at Discharge - General Location: None Selected Walker Location: None Selected - Follow up Plan Follow up with: Alireza Wills PA-C [Physician Language Asst] - 01/15/19 9:00 am (Please check in at 8:40 am for this 9:00 am appointment.) Felipe Hartman MD [Primary Care Provider] - Disposition: Xfer SNF Care Plan Goals: This discharge packet is provided to you to help keep you informed about your care. We want to ensure you get everything you need when you go home. You will also be receiving a call from us in a few days to follow up with you and see how you are doing since your discharge. This gives us a chance to listen to any concerns you maybe experiencing since you were discharged or any additional needs you may have, as well as providing us feedback on your care experience. We strive to always provide excellent care and thank you for your feedback and for choosing [facility]. Prognosis: Fair Rehab Potential: Fair I certify that the patient requires SNF services: Yes Overall status at discharge: patient is progressing back to baseline Medical - DS: Qual - VTE Deep Vein Thrombosis/Pulmonary Embolism Present on Admission: No
[2019-01-02] MEDS: SENNOSIDES 1 TABLET PO SCH (21:12)
[2019-01-02] MEDS: traMADol 50 MG TABLET PO PRN (21:12)
[2019-01-03 06:39] LABS: Hematocrit 27.8 % (36.0-48.0); Hemoglobin 9.1 g/dL (12.0-15.0)
[2019-01-03 07:04] LABS: ALT/SGPT 5 U/l (0-40); AST/SGOT 9 U/l (0-37); Albumin 2.9 gm/dL (3.2-5.2); Albumin/Globulin Ratio 1.2 (1.0-2.3); Alkaline Phosphatase 98 U/L (39-117); Bilirubin,Direct < 0.2 mg/dL (0.0-0.3); Bilirubin,Total 0.2 mg/dL (0.0-1.0); Blood Urea Nitrogen 13 mg/dl (8-23); Calcium 8.3 mg/dl (8.6-10.4); Carbon Dioxide 24 mmol/L (22-30); Chloride 94 mmol/L (96-108); Globulin 2.5 gm/dL (2.2-3.7); Glomerular Filtration Rate 88; Glucose 206 mg/dL (70-105); Lactate Dehydrogenase 132 U/L (94-250); Phosphorous 2.9 mg/dL (2.7-4.5); Triglycerides 123 mg/dl (<150); Uric Acid 4.7 mg/dL (2.5-8.0)
[2019-01-03 07:07] LABS: Prothrombin Time 30.6 sec (11.9-14.5)
[2019-01-03] MEDS: DOCUSATE SODIUM 100 MG CAPSULE PO SCH (07:54)
[2019-01-03] MEDS: INSULIN GLARGINE, HUMAN 1 UNIT/0.01 ML SQ SCH (07:54)
[2019-01-03] MEDS: POTASSIUM CHLORIDE 10 MEQ TABLET PO SCH (07:54)
[2019-01-03] MEDS: LISINOPRIL 20 MG TABLET PO SCH (07:54)
[2019-01-03] MEDS: OMEPRAZOLE 20 MG CAPSULE PO SCH (07:54)
[2019-01-03] MEDS: amLODIPine 10 MG TABLET PO SCH (07:54)
[2019-01-03] MEDS: INSULIN LISPRO 1 UNIT/0.01 ML UNIT SQ SCH (07:55)
[2019-01-03] MEDS: MOMETASONE FUROATE 220 MCG INH SCH (07:55)
[2019-01-03] MEDS: NASONEX NAS SCH (07:55)
--- NOTE | 2019-01-03 08:26 | Orthopedic Progress Note ---
Subjective Patient information: Note initiated : 01/03/19 at 8:24 am Service Date, if different from initiated Date: [] Patient: Alia Alfred 78 y/o F admitted on 12/31/18 for Fall, Hip Fx. Chief Complaint: [S/p IM nailing of right intertrochanteric hip fx] Patient is doing well and ambulates well with the assistance of a walker. She has no particular complaints today. She denies any chest pain, SOA, or calf tenderness. Principal diagnosis: Right intertrochanteric hip fx Objective Vital signs: Vital Signs Temp Pulse Resp BP Pulse Ox 01/03/19 03:45 98.2 F 102 H 16 136/67 96 01/02/19 23:12 99.2 F H 111 H 16 125/64 94 01/02/19 19:06 98.1 F 112 H 18 124/65 96 01/02/19 16:00 98.1 F 20 122/57 96 01/02/19 12:00 99 F 20 129/76 93 Intake and Output 01/02/19 01/03/19 01/03/19 21:59 05:59 13:59 Intake Total 30 125 Output Total 400 300 Balance -370 125 -300 Intake: Oral 30 125 Output: Void Amount 400 300 Other: Meal Lunch Percent of Meal Consumed 75% Feeding Ability Independent Stool Size Large Stool Color Brown Stool Consistency Formed # Voids 1 # Bowel Movements 1 Weight 136 lb 8 oz Intake & Output: Intake & Output 01/02/19 01/03/19 01/03/19 21:59 05:59 13:59 Intake Total 30 125 Output Total 400 300 Balance -370 125 -300 Weight 136 lb 8 oz Intake: Oral 30 125 Output: Void Amount 400 300 Other: Meal Lunch Percent of Meal Consumed 75% Feeding Ability Independent Stool Size Large Stool Color Brown Stool Consistency Formed # Voids 1 # Bowel Movements 1 Incision: Yes healing, Yes clean and dry Incision clean and dry: Yes Dressing: Yes clean, Yes dry, Yes intact Weight bearing status: as tolerated Neurological exam IM: Yes alert, Yes oriented X3, Yes motor sensory intact, Yes neurovascular intact Extremities exam IM: Yes calf tenderness (negative bilaterally), Yes tenderness (lateral hip), Yes Yue's sign (negative bilaterally), Yes Foot pink and warm, Yes neurovascular intact - Labs CBC & BMP: 01/03/19 04:45 01/03/19 04:45 Labs: Orthopedic Labs 01/03/19 01/02/19 01/01/19 04:45 04:10 04:20 PT 30.6 H 15.6 H 13.7 INR 3.0 H 1.2 H 1.0 01/03/19 01/02/19 01/01/19 04:45 04:10 04:20 Hgb 9.1 L 9.5 L 10.0 L Hct 27.8 L 29.3 L 30.4 L Assessment and Plan (1) Closed right hip fracture Discharge to [facility]. She may ambulate as tolerated with a walker. F/u in 2 weeks at [facility] for wound check and staple removal. Status: Acute
[2019-01-03] MEDS: 0.9 % SODIUM CHLORIDE 10 ML SYRINGE IV SCH (09:10)
[2019-01-03] MEDS: traMADol 50 MG TABLET PO PRN (09:59)
== END 2019-01-03 10:00 | DRG 481 ==
LOC: ED 13:04 → MEDSUR 14:52
PROVIDERS: ADMIT Internal Medicine; ATTEND Internal Medicine